=== PATIENT | male | born 1995 | race African-American/Black ===

== ENCOUNTER 2017-07-28 23:49 | Emergency (ER) | payer SELFPAY ==
[~2017-07-28 23:49] MED LIST: ADVAIR 250/28 DISKU1 IH; ADVAIR 250/28 DISKUS IH; ALBUTEROL0.09 MG/A1 IH; ALLEGRA180 MG PO; PREDNISONE 20MG20 MG PO; PREDNISONE20 MG PO; PROAIR HFA0.09 MG/AC IH; RELION VEN0.09 MG/Ac IH; ROBAXIN 50500 MG/TAB PO; SINGULAIR10 MG PO; XOPENEX 1.1.25 MG/3 IH; XOPENEX1.25 MG/3 IH
[2017-07-28 23:52] VITALS: BP 137/94; PULSE 85; TEMP 97.9
== END 2017-07-29 00:10 | disposition home or self-care (01) ==
LOC: COL.ER 23:49
DX: S61.412D Laceration without foreign body of left hand, subsequent encounter (principal); X58.XXXD Exposure to other specified factors, subsequent encounter

== ENCOUNTER 2019-12-01 08:01 | Emergency (ER) | payer SELFPAY ==
[~2019-12-01] VITALS: Ht 170.2 cm; Wt 63.6 kg
[2019-12-01 08:06] VITALS: BP 116/76; PULSE 85; TEMP 98.2
[2019-12-01] MEDS ORDERED: RT ADVAIR 228 DISKUS IH (08:09)
[2019-12-01] MEDS ORDERED: PROAIR HFA0.09 MG/AC IH (08:47)
== END 2019-12-01 08:54 | disposition home or self-care (01) ==
LOC: COL.ER 08:01
DX: Z76.0 Encounter for issue of repeat prescription (principal); J45.909 Unspecified asthma, uncomplicated; F17.200 Nicotine dependence, unspecified, uncomplicated